=== PATIENT | female | born 1930 | race Caucasian/White ===

== ENCOUNTER → 2017-09-02 | Day surgery (SDC) | payer OTHER ==
[~2017-09-02] VITALS: Ht 152.4 cm; Wt 65.5 kg
[~2017-09-02] MED LIST: *morphine SULFATE 10 MG/ML PERIprocedure ONLY ONE; *morphine SULFATE 4 MG/ML PERIprocedure ONLY ONE; ACETAMINOPHEN 1000 MG/100 ML 100 ML IV ONE; ACETAMINOPHEN/HYDROcodone 325 MG/5 MG TAB ONE; ACETAMINOPHEN/HYDROcodone 325 MG/5 MG TAB PO PRN; BUPIVACAINE HCL PF 0.5% 30 ML VIAL ONE; CALC1TAB87 PO; CHLORHEXIDINE GLUCONATE 2 % 1 PACK (2 CLOTHS) TOPICAL PRN; DO NOT ADM ANY ANTICOAGULANT DRUGS PRN; HYDR-3288 PO; IBUP200T47 PO; INSULIN HUMAN REGULAR 1,000 UNITS/10 ML VIAL SQ PRN; LACTATED RINGER'S 1000 ML IV PRN; LEVO50TA4 PO; LIDOCAINE HCL 1% PF 5 ML SYRINGE OTHER ONE; LIDOCAINE HCL 2% 50 ML VIAL ONE; MEPERIDINE HCL 50 MG/ML VIAL IM PRN; METOPROLOL TARTRATE 25 MG TAB PO PRN; NEOMYCIN/POLYMYXIN 1 ML G.U. IRRIGANT ONE; OMEP20TA93 PO; ONDANSETRON HCL 4 MG/2 ML VIAL ONE; PHENYLEPH/NS 1000 MCG/10 ML SYR IV ONE; POVIDONE IODINE 5% (ANTISEPSIS KIT) 4 APPLICATIONS EACH NARE PRN; PROPOFOL 200 MG/20 ML AMP IV ONE; SODIUM CHLORID 0.9% 500 ML IV PRN; TRIA37.5 PO; ePHEDrine/NS 25 MG/5 ML SYRINGE IV ONE; fentaNYL CITRATE 250 MCG/5 ML AMP ONE
[2017-09-02] MEDS: CIPROFLOXACIN/DEXT 200 MG/100 ML IV SCH ×2 (08:31→08:37)
[2017-09-02 08:41] LABS: AUTOMATED NEUTROPHIL # 3.2 TH/MM3 (1.8-7.7); BASOPHIL % 0.7 % (0.0-2.0); EOSINOPHIL # 0.1 TH/MM3 (0-0.4); HEMATOCRIT 31.6 % (35.0-46.0); HEMOGLOBIN 10.5 GM/DL (11.6-15.3); LYMPH % 16.3 % (9.0-44.0); LYMPHOCYTE # 0.8 TH/MM3 (1.0-4.8); MEAN CELL VOLUME 77.8 FL (80.0-100.0); MEAN CORPUSCULAR HEMOGLOBIN 25.9 PG (27.0-34.0); MEAN CORPUSCULAR HGB CONC 33.2 % (32.0-36.0); MEAN PLATELET VOLUME 10.1 FL (7.0-11.0); MONO % 10.9 % (0.0-8.0); MONOCYTE # 0.5 TH/MM3 (0-0.9); NEUT % 70.1 % (16.0-70.0); PLATELET COUNT 145 TH/MM3 (150-450); RED BLOOD COUNT 4.06 MIL/MM3 (4.00-5.30); RED CELL DISTRIBUTION WIDTH 17.4 % (11.6-17.2); WHITE BLOOD COUNT 4.6 TH/MM3 (4.0-11.0)
[2017-09-02 14:20] VITALS: BP 117/64; PULSE 65; RESP 20; TEMP 96.9; O2SAT 20
--- NOTE | 2017-09-02 14:32 | EKG ---
Date Performed: 09/02/2017 Time Performed: 08:03:41 PTAGE: 87 years EKG: Sinus rhythm WITH FREQUENT SUPRAVENTRICULAR PREMATURE COMPLEXES LEFT BUNDLE BRANCH BLOCK ABNORMAL ECG Compared to PREVIOUS TRACING , left bundle branch block is new. Clinical correlation is recommended. PREVIOUS TRACIN01/05/2005 15.28 DOCTOR: Trell Feliciano Interpretating Date/Time 09/02/2017 14:29:05
--- NOTE | 2017-09-03 10:24 | MP ---
cc: JONA DRAPER III, M.D. DATE OF SURGERY 09/02/2017 PREOPERATIVE DIAGNOSIS Right 4th and 5th proximal phalangeal fractures. POSTOPERATIVE DIAGNOSIS Right 4th and 5th proximal phalangeal fractures. PROCEDURE 1. Closed reduction and pinning with manipulation, right 4th and 5th proximal phalanx fractures. 2. Use of image intensifier. SURGEON Jona Draper III, M.D. DETAILS OF PROCEDURE The patient was brought to the operating room and placed supine on the operating table after the correct site and side of surgery were verified by members of each team in the room multiple times including the patient and myself, and after adequate preoperative markings and preoperative written consent were verified, and after an adequate preoperative timeout was performed to everyone's satisfaction, and after adequate general anesthesia had been achieved, the right upper extremity was prepped and draped in the traditional sterile surgical fashion. Manipulation and examination under real-time mini C-arm fluoroscopy was performed. A 50/50 mixture of 2% plain lidocaine and 0.5% plain Marcaine was infiltrated in the skin and subcutaneous tissue to provide for digital blocks; this was done dorsally. The 5th proximal phalanx was first reduced and secured in place using two separate 0.035 cm K-wires with full passive range of motion being possible and no signs of malangulation or malrotation in near anatomic reduction. They were tailored to length, cut, and Jurgan balls were applied. The 4th proximal phalanx was more stable and only one pin was needed to fully control it and stabilize it. This was in near anatomic reduction as well. The pin was treated in the same way. This was 0.045 cm in diameter. The hand and arm were thoroughly cleansed and dried. Final x-rays were obtained. Xeroform was applied around the pin sites followed by Jurgan balls and a bulky well-padded, well-molded volar immobilizing whole-hand splint in short-arm length was made in the usual fashion. The patient was awakened from anesthesia and transported to the post-anesthesia care unit awake and in stable condition at the end of the case. Sponge, needle and instrument counts were correct at the end of the case as reported by the nurses in the room. Capillary refill was less than two seconds in all fingertips the entire time. MD IMANI Krishnamurthy III /11:24 AM /9:53 AM
== END | disposition home or self-care (01) ==
LOC: HSDC 07:12
PROVIDERS: ATTEND Orthopaedic Surgery Hand Surgery
DX: S62.614A Displaced fracture of proximal phalanx of right ring finger, initial encounter for closed fracture (principal); S62.616A Displaced fracture of proximal phalanx of right little finger, initial encounter for closed fracture; R94.31 Abnormal electrocardiogram [ECG] [EKG]
CPT/HCPCS: 01820; 26725; 76000; 85025; 93005; J0131; J0744; J2270; J2370; J2405; J3010; J7120